=== PATIENT | female | born 1995 | race Caucasian/White ===

== ENCOUNTER → 2021-09-08 | Outpatient (CLI) | payer BC, OTHER ==
[2021-09-08 16:23] LABS: BASO # 0.06 K/mm3 (0.02-0.10); EOS # 0.03 K/mm3 (0.04-0.40); EOS % 0.4 % (1.0-5.0); HEMATOCRIT 44.2 % (37.0-47.0); HEMOGLOBIN 15.1 g/dL (12.5-16.0); LYMPH# 1.76 K/mm3 (1.50-4.00); MEAN CELL VOLUME 92 fl (78-100); MEAN CORPUSCULAR HEMOGLOBIN 31 pg (27-31); MEAN CORPUSCULAR HGB CONC 34 g/dL (33-37); MEAN PLATELET VOLUME 8.8 fl (7.4-10.4); MONO # 0.47 K/mm3 (0.20-0.80); NEU # 4.53 K/mm3 (1.40-6.50); PLATELET COUNT 287 K/mm3 (130-400); RED BLOOD COUNT 4.83 M/mm3 (4.10-5.30); RED CELL DISTRIBUTION WIDTH 10.9 % (11.5-14.5); WHITE BLOOD COUNT 6.9 K/mm3 (4.8-10.8)
[2021-09-08 16:52] LABS: ALBUMIN 5.1 g/dL (3.5-5.0); POTASSIUM 3.7 mmol/L (3.5-5.1)
[2021-09-08 16:54] LABS: CALCIUM 9.8 mg/dL (8.3-10.5)
[2021-09-08 16:55] LABS: TOTAL PROTEIN 8.1 g/dL (6.4-8.3)
[2021-09-08 16:57] LABS: TOTAL BILIRUBIN 1.5 mg/dL (0.2-1.2)
== END ==
LOC: LAB 16:12
PROVIDERS: Internal Medicine
DX: F41.8 Other specified anxiety disorders (principal); F90.9 Attention-deficit hyperactivity disorder, unspecified type; K90.9 Intestinal malabsorption, unspecified; Z79.3 Long term (current) use of hormonal contraceptives

== ENCOUNTER → 2022-11-19 | Outpatient (CLI) | payer BC, OTHER ==
[~2022-11-19] MED LIST: CIPRO500 M1 PO; CYCLOBENZAPRINE10 M1 PO; DEPO-PROVER150 MG/M2 IM; ESCITALOPRAM10 MG PO; ZOFRAN ODT4 MG PO
[2022-11-19 17:30] LABS: ALBUMIN 4.7 g/dL (3.5-5.0)
[2022-11-19 17:31] LABS: POTASSIUM 3.7 mmol/L (3.5-5.1)
[2022-11-19 17:32] LABS: CALCIUM 9.7 mg/dL (8.3-10.5)
[2022-11-19 17:33] LABS: TOTAL PROTEIN 7.7 g/dL (6.4-8.3)
[2022-11-19 17:35] LABS: TOTAL BILIRUBIN 0.6 mg/dL (0.2-1.2)
[2022-11-19 17:56] LABS: BASO # 0.04 K/mm3 (0.02-0.10); EOS # 0.03 K/mm3 (0.04-0.40); EOS % 0.2 % (1.0-5.0); HEMOGLOBIN 13.7 g/dL (12.5-16.0); LYMPH# 1.22 K/mm3 (1.50-4.00); MEAN CELL VOLUME 92 fl (78-100); MEAN CORPUSCULAR HEMOGLOBIN 31 pg (27-31); MEAN CORPUSCULAR HGB CONC 34 g/dL (33-37); MEAN PLATELET VOLUME 9.7 fl (7.4-10.4); MONO # 0.88 K/mm3 (0.20-0.80); NEU # 10.09 K/mm3 (1.40-6.50); PLATELET COUNT 290 K/mm3 (130-400); RED BLOOD COUNT 4.36 M/mm3 (4.10-5.30); RED CELL DISTRIBUTION WIDTH 11.3 % (11.5-14.5); WHITE BLOOD COUNT 12.3 K/mm3 (4.8-10.8)
== END ==
LOC: LAB 17:07
PROVIDERS: Nurse Practitioner Family
DX: R10.9 Unspecified abdominal pain (principal)

== ENCOUNTER → 2022-11-20 | Outpatient (CLI) | payer BC, OTHER | LOC: RAD 09:51 | DX: R50.9 Fever, unspecified (principal) ==